=== PATIENT | male | born 1960 | race Caucasian/White ===

== ENCOUNTER 2018-06-24 13:10 | Day surgery (SDC) | payer OTHER ==
[~2018-06-24] VITALS: Ht 175.3 cm; Wt 114.3 kg
[~2018-06-24 13:10] MED LIST: ARIP15 PO; ASCO500 PO; ASPI81CH PO; ATOR10 PO; CHOL10002; DOCU100 PO; FISH1000; FLUT44OIA; FLUT44OIA INH; FURO20 PO; Micro-K10 MEQ; OMEP20ER PO; Prozac40 MG PO; Zithromax250 MG PO
[2018-06-24] MEDS ORDERED: Abreva2 GM TOP (13:52)
[2018-06-24] MEDS ORDERED: TRAZ100 PO (13:52)
--- NOTE | 2018-06-24 13:55 | NUR ---
06/24/18 Christine4 Kodi Giordano CAREGIVER AT BEDSIDE. CALL LIGHT WITHIN REACH
== END 2018-06-24 16:15 | disposition home or self-care (01) ==
LOC: ORSCSDS 13:10
PROVIDERS: Internal Medicine Gastroenterology
PROC: 0DBH8ZX Excision of Cecum, Via Natural or Artificial Opening Endoscopic, Diagnostic (ICD-10-PCS; principal; 2018-06-24 14:30)
PROC: 0DBM8ZX Excision of Descending Colon, Via Natural or Artificial Opening Endoscopic, Diagnostic (ICD-10-PCS; principal; 2018-06-24 14:30)
DX: Z12.11 Encounter for screening for malignant neoplasm of colon (principal); D12.0 Benign neoplasm of cecum; D12.4 Benign neoplasm of descending colon; K57.30 Diverticulosis of large intestine without perforation or abscess without bleeding; K64.8 Other hemorrhoids; J45.909 Unspecified asthma, uncomplicated; G47.33 Obstructive sleep apnea (adult) (pediatric); E66.9 Obesity, unspecified; Z68.37 Body mass index [BMI] 37.0-37.9, adult; F17.210 Nicotine dependence, cigarettes, uncomplicated; Z79.899 Other long term (current) drug therapy
CPT/HCPCS: 88305; J7120

== ENCOUNTER → 2023-06-12 | Outpatient (CLI) | payer OTHER ==
[~2023-06-12] MED LIST changes: +ANTIFUNGAL; +ATOR40TA PO; +Abreva2 GM TOP; +INGREZZA80 MG PO; +MONT10T PO; +PROAIR DIGIHAL90 MCG IH; +SYMBICORT 80-10.2 GM INH; +TRAZ100 PO
[2023-06-12 18:39] LABS: Percent Saturation 16.1 % (20.0-50.0)
[2023-06-14 09:16] LABS: A/G RATIO 1.6 (1.2-2.2); BILIRUBIN, TOTAL 0.2 mg/dL (0.0-1.2); CALCIUM, SERUM 9.4 mg/dL (8.6-10.2); CREATININE, SERUM 0.9 mg/dL (0.76-1.27); GLOBULIN, TOTAL 2.5 g/dL (1.5-4.5); POTASSIUM, SERUM 4.6 mmol/L (3.5-5.2); PROTEIN, TOTAL, SERUM 6.6 g/dL (6.0-8.5)
[2023-06-15 16:03] LABS: HEPATITIS A ANTIBODY, IGM Negative (Negative); HEPATITIS B CORE ANTIBODY, IGM Negative (Negative); HEPATITIS B SURFACE ANTIGEN Negative (Negative); HEPATITIS C AB CIA INTERP Negative (Negative); HEPATITIS C ANTIBODY CIA INDEX 0.08 IV
== END | disposition home or self-care (01) ==
LOC: LAB SHORT 15:20 → LAB 15:20
PROVIDERS: Family Medicine
DX: Z01.89 Encounter for other specified special examinations (principal); Z11.59 Encounter for screening for other viral diseases; D50.9 Iron deficiency anemia, unspecified; R73.03 Prediabetes; Z79.899 Other long term (current) drug therapy
CPT/HCPCS: 80053; 80074; 82728; 83036; 83540; 83550

== ENCOUNTER 2023-06-17 10:46 | Day surgery (SDC) | payer OTHER ==
[~2023-06-17] VITALS: Ht 170.2 cm; Wt 112.1 kg
[~2023-06-17 10:46] MED LIST changes: -ANTIFUNGAL; -ATOR40TA PO; +Balanced Salt Epinephrine Irrigation Solution 500 mL IR SCH; -INGREZZA80 MG PO; +Lidocaine HCl/Pf 1% 5 ML VIAL XX SCH; -MONT10T PO; +Moxifloxacin HCL 0.5 MG/0.1 ML 0.4MLSYR RIGHTEYE SCH; +NS 500 ML IV ONE; +PHENYLEPHRINE\\TROPICAMIDE\\TETRACAINE OPHTHALMIC DILATING SOLN RIGHTEYE PRN; -PROAIR DIGIHAL90 MCG IH; +Povidone-Iodine 450 DROP/30 ML Solution ONE; +Povidone-Iodine 450 DROP/30 ML Solution RIGHTEYE SCH; -SYMBICORT 80-10.2 GM INH
[2023-06-17] MEDS ORDERED: ANTIFUNGAL (11:05)
[2023-06-17] MEDS ORDERED: ATOR40TA PO (11:06)
[2023-06-17] MEDS ORDERED: PROAIR DIGIHAL90 MCG IH (11:06)
[2023-06-17] MEDS ORDERED: INGREZZA80 MG PO (11:07)
[2023-06-17] MEDS ORDERED: MONT10T PO (11:07)
[2023-06-17] MEDS ORDERED: SYMBICORT 80-10.2 GM INH (11:07)
[2023-06-17] MEDS ORDERED: NS 500 ML IV ONE ×2 (11:15→12:13)
--- NOTE | 2023-06-17 11:16 | NUR ---
06/17/23 1116 Kodi Giordano CALL LIGHT WITHIN REACH. KELLIIN IN RIGHT EYE AT 1104 AND MYAH IN AT 0015
[2023-06-17] MEDS ORDERED: Midazolam HCl 1MG / ML 2ML Vial ONE (11:23)
[2023-06-17] MEDS ORDERED: FentaNYL Citrate 50 MCG/ML 2 ML Injection ONE (11:23)
[2023-06-17] MEDS ORDERED: Tetracaine HCl 0.5% Opth Soln 15 ml XX ONE (12:16)
[2023-06-17 12:36] VITALS: BP 122/72
== END 2023-06-17 13:00 | disposition home or self-care (01) ==
LOC: ORSCSDS 10:46
PROVIDERS: Student in an Organized Health Care Education/Training Program
PROC: 08RJ3JZ Replacement of Right Lens with Synthetic Substitute, Percutaneous Approach (ICD-10-PCS; principal; 2023-06-17 12:00)
DX: H25.11 Age-related nuclear cataract, right eye (principal); I10 Essential (primary) hypertension; H50.9 Unspecified strabismus; K21.9 Gastro-esophageal reflux disease without esophagitis; E66.9 Obesity, unspecified; Z68.38 Body mass index [BMI] 38.0-38.9, adult; Z79.899 Other long term (current) drug therapy; F17.210 Nicotine dependence, cigarettes, uncomplicated
CPT/HCPCS: 82947; J2250; J3010; J7040; V2632

== ENCOUNTER → 2024-02-18 | Outpatient (CLI) | payer OTHER ==
[~2024-02-18] MED LIST changes: +ANTIFUNGAL; +ATOR40TA PO; -Balanced Salt Epinephrine Irrigation Solution 500 mL IR SCH; +INGREZZA80 MG PO; -Lidocaine HCl/Pf 1% 5 ML VIAL XX SCH; +MONT10T PO; -Moxifloxacin HCL 0.5 MG/0.1 ML 0.4MLSYR RIGHTEYE SCH; -NS 500 ML IV ONE; -PHENYLEPHRINE\\TROPICAMIDE\\TETRACAINE OPHTHALMIC DILATING SOLN RIGHTEYE PRN; +PROAIR DIGIHAL90 MCG IH; -Povidone-Iodine 450 DROP/30 ML Solution ONE; -Povidone-Iodine 450 DROP/30 ML Solution RIGHTEYE SCH; +SYMBICORT 80-10.2 GM INH
[2024-02-18 18:12] LABS: BASOPHILS ABSOLUTE AUTO 0.04 K/mm3 (0.00-0.23); BASOPHILS PERCENT AUTO 1 % (0-2); EOSINOPHILS ABSOLUTE AUTO 0.19 K/mm3 (0.00-0.68); EOSINOPHILS PERCENT AUTO 2 % (0-6); Hematocrit 44.5 % (37.0-53.0); Hemoglobin 14.7 g/dL (13.5-17.5); IMMATURE GRAN ABSOLUTE AUTO 0.02 K/mm3 (0.00-0.10); IMMATURE GRAN PERCENT AUTO 0 % (0-1); LYMPHOCYTES ABSOLUTE AUTO 2.77 K/mm3 (0.84-5.20); LYMPHOCYTES PERCENT AUTO 34 % (21-46); MONOCYTES ABSOLUTE AUTO 0.71 K/mm3 (0.16-1.47); MONOCYTES PERCENT AUTO 9 % (4-13); Mean Corpuscular HGB 32.5 pg (26.0-34.0); Mean Corpuscular Volume 98 fL (80-100); Mean Platelet Volume 10.2 fL (9.1-12.4); NEUTROPHILS ABSOLUTE AUTO 4.45 K/mm3 (1.96-9.15); NEUTROPHILS PERCENT AUTO 54 % (41-73); Platelet Count 207 K/mm3 (150-400); RDW Coefficient Variation 14.6 % (11.7-14.2); RDW Standard Deviation 52.5 fL (35.1-46.3); Red Blood Cell Count 4.53 M/mm3 (4.30-5.90); White Blood Cell Count 8.18 K/mm3 (4.00-11.30)
== END ==
LOC: LAB 16:47 → LAB SHORT 16:47
PROVIDERS: Family Medicine
DX: D50.8 Other iron deficiency anemias (principal)
CPT/HCPCS: 82728; 83540; 83550; 85025

== ENCOUNTER → 2024-09-08 | Outpatient (CLI) | payer OTHER ==
[2024-09-08 15:51] LABS: BASOPHILS ABSOLUTE AUTO 0.04 K/mm3 (0.00-0.23); BASOPHILS PERCENT AUTO 1 % (0-2); EOSINOPHILS ABSOLUTE AUTO 0.14 K/mm3 (0.00-0.68); EOSINOPHILS PERCENT AUTO 2 % (0-6); Hemoglobin 13.7 g/dL (13.5-17.5); IMMATURE GRAN ABSOLUTE AUTO 0.01 K/mm3 (0.00-0.10); IMMATURE GRAN PERCENT AUTO 0 % (0-1); LYMPHOCYTES ABSOLUTE AUTO 2.36 K/mm3 (0.84-5.20); LYMPHOCYTES PERCENT AUTO 36 % (21-46); MONOCYTES ABSOLUTE AUTO 0.57 K/mm3 (0.16-1.47); MONOCYTES PERCENT AUTO 9 % (4-13); Mean Corpuscular HGB 31.6 pg (26.0-34.0); Mean Corpuscular HGB Conc 32.6 g/dL (31.5-36.5); Mean Corpuscular Volume 97 fL (80-100); Mean Platelet Volume 10.2 fL (9.1-12.4); NEUTROPHILS ABSOLUTE AUTO 3.36 K/mm3 (1.96-9.15); NEUTROPHILS PERCENT AUTO 52 % (41-73); Platelet Count 194 K/mm3 (150-400); RDW Coefficient Variation 14.6 % (11.7-14.2); Red Blood Cell Count 4.33 M/mm3 (4.30-5.90); White Blood Cell Count 6.48 K/mm3 (4.00-11.30)
[2024-09-08 16:02] LABS: Alanine Aminotransfer (ALT/SGP 35 U/L (12-78); Albumin, Blood 3.7 g/dL (3.4-5.0); Albumin/Globulin Ratio 0.9 (0.8-1.8); Alk Phos 98 U/L (50-136); Anion Gap 5 mmol/L (3-11); Aspartate Aminotrans (AST/SGOT 17 U/L (12-37); Bilirubin, Total 0.3 mg/dL (0.1-1.0); Blood Urea Nitrogen 14 mg/dL (8-24); Bun/Creatinine Ratio 15.4 (12.0-20.0); CHOL/HDL RATIO 2.3; CO2, Blood 30 mmol/L (21-32); Calcium, Blood 9.6 mg/dL (8.5-10.1); Chloride, Blood 106 mmol/L (98-108); Cholesterol 106 mg/dL (50-200); Creatinine, Blood 0.91 mg/dL (0.60-1.20); Glomerular Filtration Rate 96 (60-); Glucose, Blood 122 mg/dL (70-99); HDL Cholesterol 47 mg/dL (>39); LDL/HDL RATIO 0.9; Low Density Lipoprotein Chol 43 mg/dL (0-110); Sodium, Blood 137 mmol/L (136-145); Total Protein, Blood 7.7 g/dL (6.4-8.2); Triglycerides 80 mg/dL (30-160); Very Low Density Lipoprot Chol 16 mg/dL (6-32)
[2024-09-08 16:07] LABS: Thyroid Stimulating Hormone 0.986 uIU/mL (0.360-4.800)
[2024-09-11 18:59] LABS: HIV 1,2 COMBO ANTIGEN/ANTIBODY Negative (Negative)
== END | disposition home or self-care (01) ==
LOC: LAB SHORT 14:55 → LAB 14:55
PROVIDERS: Family Medicine
DX: Z11.4 Encounter for screening for human immunodeficiency virus [HIV] (principal); Z79.899 Other long term (current) drug therapy
CPT/HCPCS: 80053; 80061; 82306; 83036; 84443; 85025; 87389